=== PATIENT | female | born 1960 | race Asian ===

== ENCOUNTER → 2016-07-19 | Outpatient (CLI) | payer OTHER | LOC: CIMAGING 08:56 | PROVIDERS: ATTEND Family Medicine | DX: K87 Disorders of gallbladder, biliary tract and pancreas in diseases classified elsewhere (principal) | CPT/HCPCS: 76700-PO ==

== ENCOUNTER 2016-09-26 20:38 | Emergency (ER) | payer OTHER ==
[2016-09-26 20:48] VITALS: BP 100/46; PULSE 70; TEMP 97.9; O2SAT 95
--- NOTE | 2016-09-26 21:33 | EDPHY ---
H & P Time Seen by Provider: 09/26/16 20:51 HPI/ROS: This patient complains of left medial knee pain of 4 days duration. She explains that she [place] [employer] without difficulty over Memorial Day weekend and had no knee symptoms at that time but after jumping on a trampoline 4 days prior to arrival without evident injury while jumping she developed some medial knee pain. Since that time she describes moderate ache that has been increasing in intensity and this primarily notable during partial flexion walking downstairs. Due to this she has been walking sideways down stairs. Peak intensity 6/10. She has partial relief from NSAIDs. No other exacerbating factors. She does think there might be slight medial knee swelling associated with the symptoms. She has never had these symptoms before. No feeling of instability to the knee. She has never heard a pop or click. No locking of the knee. ROS: Constitutional: No fevers or other symptoms Musculoskeletal: No other joint pain Cardiovascular: No calf swelling or pain. Pulmonary: No pleuritic pain or dyspnea Integumentary: No skin rash or erythema. 7 point ROS is otherwise negative Smoking Status: Never smoked Physical Exam: Physical Exam Vital signs are normal. General: Pleasant female No acute distres Lungs: No respiratory distress. Cardiac: Brisk capillary refill is intact throughout. Pulses are 2+ and symmetric in the affected extremity. Skin: No rash or pallor. Extremities: Atraumatic normal except for left lower extremity Left lower extremity: Patient has tenderness to the medial knee and proximal medial tibia on the left side. She maintains full range of motion of the knee without evident increase in pain. No laxity on Dieudonne's exam. No increase in pain with varus or valgus stress. She can extend the knee versus resistance and flex versus resistance without change in pain. No patellar anxiety. In the prone position with the knee flexed at 90 and axial loading appreciate no obvious crepitance. No significant increase in pain with this maneuver. She has no calf swelling or tenderness. Homans is negative Neuro: Alert and oriented x3 with no sensorimotor deficits. Initial differential diagnosis: Pathologic fracture, other bony abnormality, meniscal injury, mild MCL injury Constitutional: Initial Vital Signs Temperature (C) 36.6 C 09/26/16 20:47 Heart Rate 70 09/26/16 20:47 Respiratory Rate 18 09/26/16 20:47 Blood Pressure 100/46 L 09/26/16 20:47 O2 Sat (%) 95 09/26/16 20:47 O2 Delivery Mode Room Air Allergies/Adverse Reactions: CT dye Allergy (Intermediate, Uncoded 09/26/16 20:47) Rash Home Medications: Medication Instructions Recorded CRANBERRY 12/22/15 MDM/Departure - MDM Diagnostics: Knee x-ray: Negative for acute fracture by my interpretation Imaging Results: Imaging Impressions Knee X-Ray 09/26/16 20:51 Impression: 1. No definite acute fracture. 2. Recommend additional imaging if symptoms persist, if clinically indicated. Imaging: I viewed and interpreted images myself ED Course/Re-evaluation: Patient placed in a neoprene brace. I counseled her regarding potential meniscal injury versus other. We ruled out bony injury and no evidence of significant ligamentous injury on exam. Clinically I do not think she has a DVT. Encouraged her to use cane or crutches if needed and follow up with Dr. Quispe for further evaluation - Depart Disposition: Home, Routine, Self-Care Clinical Impression: Knee pain, acute Qualifiers: Laterality: left Qualified Code(s): M25.562 - Pain in left knee Condition: Good Instructions: Knee Pain (ED) Additional Instructions: Diagnosis: Knee pain You may have a meniscal injury to knee. Plan: Ice 20 minutes at a time 3 times a day Ibuprofen Tylenol for pain Neoprene knee brace Cane or crutches if needed Follow up with Dr. Quispe within the next 2-7 days for recheck. Referrals: Yasmine Starks MD [Primary Care Provider] - As per Instructions Noelle Quispe MD [Medical Doctor] - As per Instructions
[2016-09-26 22:10] VITALS: RESP 20
== END 2016-09-26 21:40 | disposition home or self-care (01) ==
LOC: CED 20:38
DX: M25.562 Pain in left knee (principal)
CPT/HCPCS: 73562-PO; L1830

== ENCOUNTER → 2017-04-18 | Outpatient (CLI) | payer OTHER | LOC: BRMIMAGING 09:16 | PROVIDERS: ATTEND Family Medicine | DX: Z13.820 Encounter for screening for osteoporosis (principal); M85.88 Other specified disorders of bone density and structure, other site; D89.0 Polyclonal hypergammaglobulinemia; R77.2 Abnormality of alphafetoprotein; R94.5 Abnormal results of liver function studies ==

== ENCOUNTER → 2017-06-27 | Outpatient (CLI) | payer OTHER ==
[~2017-06-27] MED LIST: FAMOTIDINE 20 MG/2 ML SDV ONE
== END ==
LOC: CIMAGING 07:45
PROVIDERS: ATTEND Family Medicine
DX: Z12.31 Encounter for screening mammogram for malignant neoplasm of breast (principal)

== ENCOUNTER → 2018-03-18 | Outpatient (CLI) | payer OTHER | LOC: CIMAGING 07:23 | PROVIDERS: ATTEND Family Medicine | DX: R77.2 Abnormality of alphafetoprotein (principal); K76.0 Fatty (change of) liver, not elsewhere classified | CPT/HCPCS: 76705-PO ==

== ENCOUNTER → 2018-08-07 | Outpatient (CLI) | payer OTHER | LOC: EMCIMAGING 13:33 | PROVIDERS: ATTEND Family Medicine | DX: Z12.31 Encounter for screening mammogram for malignant neoplasm of breast (principal) | CPT/HCPCS: 77067-PN ==